=== PATIENT | female | born 1980 | race Caucasian/White ===

== ENCOUNTER 2024-08-08 08:37 | Inpatient (IN) ==
--- NOTE | 2024-08-08 08:53 | Emergency Department Note ---
Impression & Plan Diverticulitis of intestine with abscess, Abdominal pain, Leukocytosis, Nausea & vomiting ED Provider Note NAME: NIKI ARCHAEOLOGIST AGE: 44 SEX: F : 1980 ARRIVES VIA: Walk-In INFORMANT: Patient ED PROVIDER(S): Neftaly Ashby MD CHIEF COMPLAINT: PLAN: Disposition: Admit MEDICAL DECISION MAKING: The patient is a pleasant 44-year-old woman presents to the emergency department for ongoing lower mid abdominal pain with associated nausea and vomiting and feverishness which she reports began last week when she was treated for presumed urinary tract infection following telehealth visit/evaluation. She reports she was prescribed Macrobid and did feel she had improved subsequently but then symptoms returned on Tuesday and continued through the weekend and while she felt better on Tuesday symptoms gradually returned yesterday with fever and vomiting. Patient denies any prior abdominal surgeries. She reports minimal pain at this time. On evaluation the patient is no acute distress, afebrile with heart in the 100s and blood pressure 150s/110s and vital signs otherwise stable. She appears clinically dry. She has mild mid lower abdominal discomfort without discrete tenderness. There is no guarding or rebound. Patient was provided with IV fluid hydration, IV APAP, famotidine and Zofran. WBC 17.5 K with neutrophil predominance but no left shift. H/H and platelets within normal limits. Chemistry without metabolic acidosis. Total bilirubin 1.2 with direct Nile 0.6, nonspecific with normal AST and mildly elevated ALT. Lipase is not elevated. hCG was negative. UA is not suggestive of infection. Respiratory BioFire was negative. CT of the abdomen and pelvis was performed and demonstrates a 7.5cm x 7.4cm gas and fluid-filled collection in the peritoneum with extension to multiple loops of small bowel. Findings are compatible with diverticulitis with abscess which may involve multiple loops of small bowel. Reactive mesenteric and retroperitoneal lymph nodes are seen. No evidence of perforation. Case reviewed Nader Galan PAC, interventional radiology and Isis Becerra PAC with Dr. Ventura general surgery. Appreciate consultation recommendations. Recommend admission to medicine service at this time for IV antibiotics. Abscess possibly amenable to IR drainage though there is question of possible small bowel defect which they recommend to further characterize with repeat CT with oral contrast. Plan will be for IR drainage tomorrow if amenable or surgical intervention otherwise. Blood culture was obtained and IV antibiotics initiated with Zosyn. Findings were reviewed with the patient and she does agree with plan. Case was discussed with Dr. Marie, [facility] hospitalist, who will evaluate the patient for admission. Triage Nursing notes reviewed and agree them. Prior/external medical records reviewed Vital Signs: reviewed Differential diagnosis: Appendicitis, ovarian cyst, ovarian torsion, ectopic , TOA, PID, infections, diverticulitis, UTI, obstruction, mesenteric ischemia, aortic pathology, inflammatory bowel disease, renal colic, PUD, pancreatitis, biliary pathology, hernia, volvulus, constipation, as well as other pathologies. ER treatment provided: See below. Diagnostics interpreted by me: ECG: Normal sinus rhythm, 86 bpm, no ectopy, no overt ST elevation or depression, QTc 435, QRS 94. Cardiac Monitoring: An order for continuous cardiac monitoring was placed and demonstrated Normal sinus rhythm, 86 bpm, no ectopy. Laboratory studies: See below Imaging studies: See below Consultation(s): Nader Galan PAC, interventional radiology Isis Becerra PAC with Dr. Ventura general surgery. Dr. Marie [facility] hospitalist. HPI: The patient is a pleasant 44-year-old woman presents to the emergency department for ongoing lower mid abdominal pain with associated nausea and vomiting and feverishness which she reports began last week when she was treated for presumed urinary tract infection following telehealth visit/evaluation. She reports she was prescribed Macrobid and did feel she had improved subsequently but then symptoms returned on Tuesday and continued through the weekend and while she felt better on Tuesday symptoms gradually returned yesterday with fever and vomiting. Patient denies any prior abdominal surgeries. ROS: See above HPI for pertinent positives & negatives. A total of 10 systems reviewed and were otherwise negative. VITALS:See Below PHYSICAL EXAMINATION: GENERAL: Awake, alert, fatigued-appearing, in no distress, BMI 34.7. HENT: Normocephalic, atraumatic. Oropharynx with dry mucous membranes and otherwise unremarkable. EYES: Normal conjunctiva. Sclera non-icteric. NECK: Supple. No nuchal rigidity. FROM. No JVD. RESPIRATORY: Clear to auscultation. CARDIAC: Tachycardic rate, normal rhythm. Extremities warm and well perfused. Pulses equal. ABDOMEN: Soft, non-distended. Mild mid lower abdominal discomfort without discrete tenderness to palpation. No rebound or guarding. No masses. MUSCULOSKELETAL: Chest examination reveals no tenderness. The back is symmetrical on inspection without obvious abnormality. There is no CVA tenderness to palpation. No joint edema. LOWER EXTREMITIES: Calves are equal size bilaterally and non-tender. No edema. No discoloration. NEURO: Normal sensorium. No sensory or motor deficits noted. SKIN: No rash or jaundice noted. Neftaly Ashby MD Past Med/Surg History Problem List (Updated 08/08/24 @ 22:05 by Neftaly Ashby MD) Nausea & vomiting (Acute) Leukocytosis (Acute) Abdominal pain (Acute) Diverticulitis of intestine with abscess (Acute) Social History Smoking Status: Never smoker Hx Alcohol Use: Yes Alcohol type: beer, wine and hard liquor Hx Substance Use: No Preferred Language: Mongolian Communication Ability: Effective Cylinder Filler Required: No Beliefs That Will Affect Care: None Current Living Situation: Spouse and Family Feels Safe at Home: Yes Assistive Devices: Glasses Allergies Allergies Allergy/AdvReac Type Severity Reaction Status Date / Time nickel Allergy Mild contact Unverified 08/08/24 11:48 rash Home Meds Home Medications Medication Instructions Recorded Confirmed Fish Oil 1 cap PO DAILY 08/08/24 08/08/24 Ibuprofen Tab (MOTRIN) 600 mg PO Q4H PRN Pain 08/08/24 08/08/24 Vitamin D3 1 tab PO DAILY 08/08/24 08/08/24 magnesium glycinate 1 tab PO DAILY 08/08/24 08/08/24 Results & Data (ED) Vital Signs Vital Signs - 24 hr 08/08/24 08:42 08/08/24 09:14 08/08/24 10:45 Temperature 36.5 C Temperature Source Temporal Artery Scan Pulse Rate 105 H 104 H Pulse Rate [Apical] Pulse Rhythm [Apical] Pulse Strength [Apical] Respiratory Rate 16 19 Respiratory Effort / Characteristics Non-Labored Spontaneous Respiratory Depth Normal Respiratory Pattern Blood Pressure 158/110 H Blood Pressure [Left Arm] 171/111 H Blood Pressure Mean 126 Blood Pressure Mean [Left Arm] 131 Blood Pressure Position [Left Arm] Pulse Oximetry 97 97 95 Oxygen Delivery Method Room Air Room Air Room Air Sepsis Recent Fever Within 48 Hours Yes Sepsis New/Unexplained Change in Mental Status No Sepsis Action Taken by Nursing No Action Required 08/08/24 14:00 Temperature Temperature Source Pulse Rate Pulse Rate [Apical] 85 Pulse Rhythm [Apical] Regular Pulse Strength [Apical] Normal Respiratory Rate 19 Respiratory Effort / Characteristics Spontaneous Respiratory Depth Normal Respiratory Pattern Regular Blood Pressure Blood Pressure [Left Arm] 181/101 H Blood Pressure Mean Blood Pressure Mean [Left Arm] 127 Blood Pressure Position [Left Arm] Lying Pulse Oximetry 99 Oxygen Delivery Method Room Air Sepsis Recent Fever Within 48 Hours Sepsis New/Unexplained Change in Mental Status Sepsis Action Taken by Nursing Laboratory Data 08/08/24 09:23 08/08/24 09:23 Lab Results 08/08/24 08/08/24 Range/Units 09: 10:19 WBC 17.55 H (4.8-10.8) K/ul RBC 4.80 (4.20-5.40) M/uL Hgb 13.7 (12.0-16.0) g/dl Hct 41.5 (37.0-47.0) % MCV 86.5 (80.0-100.0) fL MCH 28.5 (25.0-34.0) pg MCHC 33.0 (32.0-36.0) g/dL RDW Std Deviation 39.8 (36.4-46.3) fL RDW Coeff of [place] 12.5 (11.5-14.5) % Plt Count 334 (130-400) K/uL MPV 10.1 (9.4-12.4) fL Immature Gran % (Auto) 0.9 % Neut % (Auto) 83.3 % Lymph % (Auto) 6.8 % [place] % (Auto) 8.3 % Eos % (Auto) 0.4 % Baso % (Auto) 0.3 % Neut # (Auto) 14.61 H (1.40-6.50) K/uL Lymph # (Auto) 1.19 L (1.20-3.40) K/uL [place] # (Auto) 1.46 H (0.11-0.59) K/uL Eos # (Auto) 0.07 (0.00-0.50) K/uL Baso # (Auto) 0.06 (0.00-0.20) K/uL Immature Gran # (Auto) 0.16 (0.01-0.20) K/uL Sodium 138 (136-145) mmol/L Potassium 4.1 (3.5-5.1) mmol/L Chloride 99 (98-107) mmol/L Carbon Dioxide 30 (21-32) mmol/L Anion Gap 9 (3-11) BUN 9 (6-23) mg/dl Creatinine 0.61 (0.6-1.2) mg/dl Est Cr Clr Drug Dosing 166.2 ml/min eGFR 114.40 BUN/Creatinine Ratio 14.8 (10-20) Glucose 107 H (70-99(Fasting)) mg/dl Calcium 9.8 (8.6-10.3) mg/dl Total Bilirubin 1.2 H (0.2-1.0) mg/dl Direct Bilirubin TNP 0.6 H AST 37 (13-39) U/L ALT 100 H (7-52) U/L Alkaline Phosphatase 151 H (34-104) U/L Total Protein 8.0 (6.0-8.3) gm/dl Albumin 3.8 (3.4-5.0) gm/dl Globulin 4.2 H (2.5-4.0) gm/dl Albumin/Globulin Ratio 0.9 (0.9-2) Lipase 6 L (11-82) U/L HCG, Qual Negative (Negative) Urine Color Dark Yellow Urine Appearance Turbid A (Clear) Urine pH 7.5 (4.5-7.5) Ur Specific [place] 1.018 (1.000-1.030) Urine Protein 1+ H (Negative) Urine Glucose (UA) Negative (Negative) Urine Ketones Trace H (Negative) Urine Blood Negative (Negative) Urine Nitrite Negative (Negative) Urine Bilirubin Negative (Negative) Urine Urobilinogen Negative (Negative) Ur Leukocyte Esterase Trace H (Negative) Urine WBC (Auto) 0-5 (0-5) /hpf Urine RBC (Auto) 3-5 H (0-2) /hpf U Hyaline Cast (Auto) 0-2 (0-2) /lpf U Epithel Cells (Auto) 3-5 H (0-2) /hpf Urine Bacteria (Auto) None Seen (None Seen) Adenovirus (PCR) Not Detected (NotDetected) B. pertussis DNA (PCR) Not Detected (NotDetected) B.parapertussis DNA PCR Not Detected (NotDetected) C. pneumoniae DNA (PCR) Not Detected (NotDetected) Coronavirus OC43 (PCR) Not Detected (NotDetected) Coronavirus HKU1 (PCR) Not Detected (NotDetected) Coronavirus 229E (PCR) Not Detected (NotDetected) SARS-CoV-2 (PCR) Not Detected (NotDetected) Coronavirus NL63 (PCR) Not Detected (NotDetected) Human Metapneumovir PCR Not Detected (NotDetected) Influenza Type A (PCR) Not Detected (NotDetected) Influenza Type B (PCR) Not Detected (NotDetected) M. pneumoniae (PCR) Not Detected (NotDetected) Parainfluenza 1 (PCR) Not Detected (NotDetected) Parainfluenza 2 (PCR) Not Detected (NotDetected) Parainfluenza 3 (PCR) Not Detected (NotDetected) Parainfluenza 4 (PCR) Not Detected (NotDetected) RSV (PCR) Not Detected (NotDetected) Entero/Rhino (PCR) Not Detected (NotDetected) Administered Medications Lactated Ringer's (Lr) 1,000 mls @ 80 mls/hr IV .[id number] RASHID Stop: 08/09/24 02:44 Last Infusion: 08/08/24 20:29 Dose: 0 mls/hr Documented By: Admin: 08/08/24 17:13 Dose: 80 mls/hr Documented By: DEANNA Piperacillin Sod/Tazobactam Sod (Zosyn) 4.5 gm in 100 mls @ 25 mls/hr IV Q8H [facility]; Protocol Stop: 08/18/24 17:59 Last Admin: 08/08/24 20:04 Dose: 25 mls/hr Documented By: GABRIEL Acetaminophen (Ofirmev) 1,000 mg in 100 mls @ 400 mls/hr IV Q8H PRN PRN Reason: Fever/Mild Pain (Pain 1,2,3) Stop: 08/11/24 17:07 Last Infusion: 08/08/24 18:49 Dose: Infused Documented By: Admin: 08/08/24 18:28 Dose: 400 mls/hr Documented By: DEANNA Ondansetron HCl (Ondansetron Inj 2 Mg/Ml 2 Ml Vial) 4 mg IV Q4H PRN PRN Reason: Nausea Stop: 09/07/24 14:49 Last Admin: 08/08/24 14:53 Dose: 4 mg Documented By: SRL Discontinued Medications Acetaminophen (Ofirmev) 1,000 mg in 100 mls @ 400 mls/hr IV NOW STA Stop: 08/08/24 09:05 Last Infusion: 08/08/24 10:46 Dose: Infused Documented By: Admin: 08/08/24 09:16 Dose: 400 mls/hr Documented By: ML Famotidine (Pepcid 20mg Iv Push) 20 mg in 5 mls @ 2.5 mls/min IV NOW STA Stop: 08/08/24 08:52 Last Admin: 08/08/24 09:15 Dose: 2.5 mls/min Documented By: ML Sodium Chloride (Nss) 500 mls @ 999 mls/hr IV .Q31M ONE Stop: 08/08/24 09:21 Last Infusion: 08/08/24 10:04 Dose: Infused Documented By: Admin: 08/08/24 09:16 Dose: 999 mls/hr Documented By: ML Piperacillin Sod/Tazobactam Sod (Zosyn) 4.5 gm in 100 mls @ 200 mls/hr IV NOW ONE; Protocol Stop: 08/08/24 13:43 Last Infusion: 08/08/24 15:38 Dose: Infused Documented By: Admin: 08/08/24 14:36 Dose: 200 mls/hr Documented By: SRL Lactated Ringer's (Lr) 500 mls @ 999 mls/hr IV .Q31M ONE Stop: 08/08/24 13:59 Last Admin: 08/08/24 17:10 Dose: Not Given Documented By: RLB Lactated Ringer's (Lr) 250 mls @ 999 mls/hr IV .Q16M ONE Stop: 08/08/24 14:24 Last Admin: 08/08/24 17:10 Dose: Not Given Documented By: RLB Lactated Ringer's (Lr) 1,000 mls @ 999 mls/hr IV .Q1H1M ONE Stop: 08/08/24 15:09 Last Infusion: 08/08/24 16:52 Dose: Infused Documented By: Admin: 08/08/24 15:20 Dose: 999 mls/hr Documented By: BENEDICT Ioversol (Optiray 320 100ml) 94 ml IV ONCE ONE Stop: 08/08/24 10:51 Last Admin: 08/08/24 10:50 Dose: 94 ml Documented By: YAMILEX Ondansetron HCl (Ondansetron Inj 2 Mg/Ml 2 Ml Vial) 4 mg IV NOW STA Stop: 08/08/24 08:52 Last Admin: 08/08/24 09:15 Dose: 4 mg Documented By: ALEJANDRINA Prochlorperazine (Prochlorperazine 5 Mg/Ml 2 Ml Vial) 5 mg IV ONCE ONE Stop: 08/08/24 15:49 Last Admin: 08/08/24 16:42 Dose: 5 mg Documented By: BENEDICT Imaging Data Radiologist's Impression: Abdomen/Pelvis CT 08/08/24 09:33 CT abd pelvis IV con only CLINICAL HISTORY: abd pain, fever TECHNIQUE: Helical axial images of the abdomen and pelvis were obtained and displayed. Automated dose lowering techniques and/or adjustment according to patient size were utilized for this exam. This exam was performed with intravenous contrast. CT DOSE: 1607.57 mGy.cm COMPARISON: None available at the time of this dictation. FINDINGS: Lower chest: No acute abnormality. Liver: Unremarkable. No focal lesions are seen. Gallbladder and biliary tree: Cholelithiasis is seen without evidence of cholecystitis. No intra- or extrahepatic biliary ductal dilation. Pancreas: Unremarkable, no focal lesions. Spleen: Unremarkable. Adrenals: Unremarkable. Kidneys and ureters: Unremarkable. Bladder: Unremarkable. Reproductive organs: Unremarkable. Bowel: Numerous diverticula are seen with wall thickening and surrounding fat stranding in the sigmoid colon. Lymph nodes Retroperitoneal: Subcentimeter lymph nodes are noted. Pelvic: Unremarkable. Mesenteric: Subcentimeter lymph nodes are noted. Peritoneum: A 75 x 74 mm gas and fluid collection is noted in the peritoneum with extension to multiple loops of small bowel. Vessels: Unremarkable. Abdominal wall: Unremarkable. Bones: Unremarkable. IMPRESSION: Findings are compatible with diverticulitis with an abscess in the abdomen. This abscess may involve multiple loops of small bowel. Reactive mesenteric and retroperitoneal lymph nodes are noted. No pneumoperitoneum is seen to suggest obtained perforation. ACT 112: Negative or not required by law. Electronically signed by: Indra Parisi M.D. 08/08/2024 11:27 AM Discharge Plan Visit Data Chief Complaint: Abdominal Pain Stated Complaint: UTI HX, FATIGUE, VOMITING, ABD PAIN ED Provider: Neftaly Ashby Discharge Problem: Diverticulitis of intestine with abscess, Abdominal pain, Leukocytosis, Nausea & vomiting Patient Disposition: Admitted As Inpatient Discharge Instructions Interventions: ED Discharge Assessment Last Done: 08/08/24 16:33 Discharge Problem: Diverticulitis of intestine with abscess Qualifiers: Diverticulitis site: large intestine Diverticulitis bleeding: without bleeding Qualified Code(s): K57.20 - Diverticulitis of large intestine with perforation and abscess without bleeding Abdominal pain Qualifiers: Abdominal location: unspecified location Qualified Code(s): R10.9 - Unspecified abdominal pain Leukocytosis Qualifiers: Leukocytosis type: unspecified Qualified Code(s): D72.829 - Elevated white blood cell count, unspecified Nausea & vomiting Qualifiers: Vomiting type: unspecified Qualified Code(s): R11.2 - Nausea with vomiting, unspecified
[2024-08-08] MEDS: FAMOTIDINE 20MG IV PUSH 20 MG/5 ML SYR IV STA (09:15)
[2024-08-08] MEDS: ONDANSETRON INJ 2 MG/ML 2 ML VIAL IV STA (09:15)
[2024-08-08] MEDS: ACETAMINOPHEN 1,000 MG/100 ML VIAL IV STA (09:16)
[2024-08-08] MEDS: SODIUM CHLORIDE 0.9% 500 ML IV ONE (09:16)
[2024-08-08 09:41] LABS: Basophils # (auto) 0.06 K/uL (0.00-0.20); Basophils % (auto) 0.3 %; Eosinophils # (auto) 0.07 K/uL (0.00-0.50); Eosinophils % (auto) 0.4 %; Hematocrit (blood only) 41.5 % (37.0-47.0); Hemoglobin 13.7 g/dl (12.0-16.0); Immature Granulocytes # (auto) 0.16 K/uL (0.01-0.20); Immature Granulocytes % (auto) 0.9 %; Lymphocytes # (auto) 1.19 K/uL (1.20-3.40); Lymphocytes % (auto) 6.8 %; Mean Corpuscular Hemoglobin 28.5 pg (25.0-34.0); Mean Corpuscular Volume 86.5 fL (80.0-100.0); Mean Platelet Volume 10.1 fL (9.4-12.4); Monocytes # (auto) 1.46 K/uL (0.11-0.59); Monocytes % (auto) 8.3 %; Neutrophils # (auto) 14.61 K/uL (1.40-6.50); Neutrophils % (auto) 83.3 %; Platelet Count 334 K/uL (130-400); RDW Coefficient of Variation 12.5 % (11.5-14.5); RDW Standard Deviation 39.8 fL (36.4-46.3); White Blood Count 17.55 K/ul (4.8-10.8)
[2024-08-08 09:47] LABS: Appearance Urine Turbid (Clear); Bacteria Urine Automated None Seen (None Seen); Bilirubin Urine Negative (Negative); Blood Urine Negative (Negative); Cast Urine Automated 0-2 /lpf (0-2); Color Urine Dark Yellow; Glucose Urine UA Negative (Negative); Ketones Urine Trace (Negative); Leukocyte Esterase Urine Trace (Negative); Nitrite Urine Negative (Negative); Protein Urine 1+ (Negative); Specific Gravity Urine 1.018 (1.000-1.030); Urobilinogen Urine Negative (Negative); WBC Urine Automated 0-5 /hpf (0-5); pH Urine 7.5 (4.5-7.5)
[2024-08-08 09:54] LABS: Pregnancy Test, Serum Negative (Negative)
[2024-08-08 10:14] LABS: Alanine Aminotransferase 100 U/L (7-52); Albumin Globulin Ratio 0.9 (0.9-2); Albumin Level 3.8 gm/dl (3.4-5.0); Alkaline Phosphatase 151 U/L (34-104); Anion Gap 9 (3-11); Aspartate Aminotransferase 37 U/L (13-39); BUN Creatinine Ratio 14.8 (10-20); Bilirubin,Total 1.2 mg/dl (0.2-1.0); Blood Urea Nitrogen 9 mg/dl (6-23); Calcium 9.8 mg/dl (8.6-10.3); Carbon Dioxide 30 mmol/L (21-32); Chloride 99 mmol/L (98-107); Creatinine Clr Calc Pharmacy 166.2 ml/min; Globulin 4.2 gm/dl (2.5-4.0); Glucose 107 mg/dl (70-99(Fasting)); Lipase 6 U/L (11-82); Potassium 4.1 mmol/L (3.5-5.1); Sodium 138 mmol/L (136-145)
[2024-08-08 10:36] LABS: Adenovirus PCR Not Detected (NotDetected); Bordetella parapertussis PCR Not Detected (NotDetected); Bordetella pertussis PCR Not Detected (NotDetected); Chlamydia pneumoniae PCR Not Detected (NotDetected); Coronavirus 229E PCR Not Detected (NotDetected); Coronavirus CoV-2 (COVID19)PCR Not Detected (NotDetected); Coronavirus HKU1 PCR Not Detected (NotDetected); Coronavirus NL63 PCR Not Detected (NotDetected); Coronavirus OC43PCR Not Detected (NotDetected); Human Metapneumovirus PCR Not Detected (NotDetected); Influenza A PCR Not Detected (NotDetected); Influenza B PCR Not Detected (NotDetected); Mycoplasma pneumoniae PCR Not Detected (NotDetected); Parainfluenza Virus 1 PCR Not Detected (NotDetected); Parainfluenza Virus 2 PCR Not Detected (NotDetected); Parainfluenza Virus 3 PCR Not Detected (NotDetected); Parainfluenza Virus 4 PCR Not Detected (NotDetected); Respiratory Syncytial VirusPCR Not Detected (NotDetected); Rhinovirus/Enterovirus PCR Not Detected (NotDetected)
[2024-08-08] MEDS: OPTIRAY 320 100ml IV ONE (10:50)
--- NOTE | 2024-08-08 11:29 | CT Scan Report ---
CT abd pelvis IV con only CLINICAL HISTORY: abd pain, fever TECHNIQUE: Helical axial images of the abdomen and pelvis were obtained and displayed. Automated dose lowering techniques and/or adjustment according to patient size were utilized for this exam. This e xam was performed with intravenous contrast. CT DOSE: 1607.57 mGy.cm COMPARISON: None available at the time of this dictation. FINDINGS: Lower chest: No acute abnormality. Liver: Unremarkable. No focal lesions are seen. Gallbladder and biliary tree: Cholelithiasis is seen without evidence of cholecystitis. No intra- or extrahepatic biliary ductal dilation. Pancreas: Unremarkable, no focal lesions. Spleen: Unremarkable. Adrenals: Unremarkable. Kidneys and ureters: Unremarkable. Bladder: Unremarkable. Reproductive organs: Unremarkable. Bowel: Numerous diverticula are seen with wall thickening and surrounding fat stranding in the sigmoi d colon. Lymph nodes Retroperitoneal: Subcentimeter lymph nodes are noted. Pelvic: Unremarkable. Mesenteric: Subcentimeter lymph nodes are noted. Peritoneum: A 75 x 74 mm gas and fluid collection is noted in the peritoneum with extension to multip le loops of small bowel. Vessels: Unremarkable. Abdominal wall: Unremarkable. Bones: Unremarkable. IMPRESSION: Findings are compatible with diverticulitis with an abscess in the abdomen. This abscess may involve multiple loops of small bowel. Reactive mesenteric and retroperitoneal lymph nodes are noted. No pneu moperitoneum is seen to suggest obtained perforation. ACT 112: Negative or not required by law. Electronically signed by: Indra Parisi M.D. 08/08/2024 11:27 AM
--- NOTE | 2024-08-08 14:09 | History & Physical Report ---
Date of Service August 08, 2024 Assessment & Plan (1) Diverticulitis of intestine with abscess: Plan: Diverticulitis with abscess CTA/P: Diverticulitis with abscess involving multiple loops of small bowel. Reactive mesenteric and retroperitoneal lymph adenopathy is noted. No pneumoperitoneum to suggest perforation Case was reviewed with both interventional radiology and general surgery. Patient will have a CT with oral contrast tomorrow morning to ensure adequate window for IR drainage. An adequate window is present or there is evidence of bowel defect then will proceed to surgery with Dr. Ventura. Zosyn given in the ER, continue every 8 hours Leukocytosis of 17.55 on admission Renal function is normal Patient is tachycardic at 104, with a leukocytosis of 17K, identified source of infection in the abdomen meets criteria for sepsis. On admission expand fluids to meet sepsis guideline recommendations for at least ideal body weight of = 2113cc --> +1113 cc of fluids, blood cultures pending, lactate added. Patient is seen during a period of critical shortage of IV fluid availability. Admit to PCU If worsening abdominal pain/rigidity/rebound, obtain stat KUB to evaluate for free air Plan DVT prophylaxis: Pharmacal prophylaxis held pending surgical intervention. SCDs CODE STATUS: Full code Disposition: PCU Diet: N.p.o., IVFM LR History of Present Illness Primary Care Provider: [facility] Yumiko is a 44-year-old female with no past medical history who takes vitamins and ibuprofen as needed as her only medications who presented to the ER with abdominal pain and he was found to have diverticulitis with abscess involving multiple loops of small bowel. Reactive mesenteric and retroperitoneal lymph adenopathy is noted. No pneumoperitoneum to suggest perforation Abdominal pain and dysuria x7 days Fever of ~100.8. Thought it was a UTI Got a telehealth appt --> placed on macrobid which FElt better up until Tuesday, went to lunch and had a salad and then had 'crazy wave of abdominal pain second in my life only to labor pains' 9/ pain. Got son from day care, layed on the cough and vomited --> felt better but pain lingered at 5/10 Tuesday still felt poorly. Attributed nausea to the antibiotic. Currently feels pain is improved at rest after pain medicine, but does continue to be tender in her left lower quadrant. Nausea has improved with Zofran Does not have chills currently, but does endorse that she has had fevers intermittently in the last week. Dysuria has resolved Denies chest pain, chest pressure, shortness of breath, difficulty breathing, leg swelling No other medical problems, no known medication allergies Medical History: Reviewed Medications: Reviewed Surgical History: Reviewed Family history: Reviewed Allergies: Reviewed. NKDA Social History: ETOH 1-2x per week. No tobacco. Code Status: Full Code PhD studying science education Allergies Allergy/AdvReac Type Severity Reaction Status Date / Time nickel Allergy Mild contact Unverified 08/08/24 11:48 rash Home Medications Medication Instructions Recorded Confirmed Type Fish Oil 1 cap PO DAILY 08/08/24 08/08/24 History Ibuprofen Tab (MOTRIN) 600 mg PO Q4H PRN Pain 08/08/24 08/08/24 History Vitamin D3 1 tab PO DAILY 08/08/24 08/08/24 History magnesium glycinate 1 tab PO DAILY 08/08/24 08/08/24 History Past Med/Surg History Problem List (Updated 08/08/24 @ 14:43 by Marko Marie MD) Diverticulitis of intestine with abscess Social History Smoking Status: Never smoker Feels Safe at Home: Yes Physical Exam Physical Exam: General: A&Ox3. NAD. Cooperative. Anxious affect HEENT: Atraumatic, normocephalic. Vision and hearing grossly intact Pulm: CTAB A&P. -wheezes, -rales, -rhonchi. Symmetrical chest rise. No increased work of breathing. No respiratory distress. Cardiac: RRR, -mrg. Radial pulses intact and symmetrical. Abdominal: Tender to palpation at the epigastrium tender to palpation at the left lower quadrant and periumbilical's. No rebound tenderness or involuntary guarding. Results & Data Results & Data Vital Signs (Past 12 Hours) Vital Signs Temp Pulse Resp BP BP Pulse Ox O2 Del Method 08/08/24 10:45 19 171/111 H 95 Room Air 08/08/24 09:14 104 H 97 Room Air 08/08/24 08:42 36.5 C 105 H 16 158/110 H 97 Room Air PG Care Time/CCT Total # of Minutes Spent Total Time Spent with Patient: Total time spent is greater than 50% in coordination of care (as documented) at patient's floor/unit and/or counseling patient: Coding Level of Care Code 28180 INT INP/OBS CARE MIN Diagnoses Diverticulitis of intestine with abscess K57.80
[2024-08-08] MEDS: PIPERACILLIN/TAZOBACTAM 4.5 GM/100 ML BAG IV ONE (14:36)
[2024-08-08] MEDS: ONDANSETRON INJ 2 MG/ML 2 ML VIAL IV PRN (14:53)
--- NOTE | 2024-08-08 15:17 | Surgery Consultation ---
Date of Consultation August 08, 2024 Assessment & Plan (1) Diverticulitis of intestine with abscess: Patient with c/o abdominal pain, n/v fever, underwent an abd/pelvis CT scan and was found to have diverticulitis with abscess involving multiple loops of small bowel. Reactive mesenteric and retroperitoneal lymph adenopathy is noted. No pneumoperitoneum to suggest perforation. On exam she denies abd pain, SOB, CP. Mild tachycardia at 97, with HTN. Abdomen is Soft non distended, TTP more LLQ. WBC 17. Discussed with IR , will attempt to do oral contrast study and percutaneous drainage/drain placement tomorrow. admit to medicine, Keep NPO, IV antibiotics, IV Fluids for hydration, PRN IV antiemetic and analgesic. No acute surgical intervention indicated at this time, although did discuss with patient pending oral contrast study pt may need surgery and could end up with a colostomy. Will follow , call if patients condition should worsen. Discussed case with on-call surgeon Dr. Ventura as above. pt stable. CT reviewed. plan is to eval with oral contrast...if no communication with small bowel IR will attempt to drain. if +leakage of contrast will need to discuss surgical vs more conservative management. History of Present Illness Reason for Consultation: diverticulitis w/ 7cm abscess Requesting Physician: Dr. Marie History of Present Illness Patient is 44yo female with no [facility] that presented to the ER with abdominal pain. Reports that she was seen last week via telehealth for a UTI and given a course of Macrobid. On last Tuesday she reports at lunch she started having severe abdominal pain with nausea and vomiting. She continued throughout the weekend feeling sick, and had a bout of emesis and nausea this AM with fever prior to arrival. She thought she was getting a worse UTI and was encouraged to come to ER by friends. While in the ER she underwent an abd/pelvis CT scan and was found to have diverticulitis with abscess involving multiple loops of small bowel. Reactive mesenteric and retroperitoneal lymph adenopathy is noted. No pneumoperitoneum to suggest perforation. General surgery was consulted. She denies prior abd surgery, blood thinners, and states that UTI symptoms have resolved. Allergies Allergy/AdvReac Type Severity Reaction Status Date / Time nickel Allergy Mild contact Unverified 08/08/24 11:48 rash Home Medications Medication Instructions Recorded Confirmed Type Fish Oil 1 cap PO DAILY 08/08/24 08/08/24 History Ibuprofen Tab (MOTRIN) 600 mg PO Q4H PRN Pain 08/08/24 08/08/24 History Vitamin D3 1 tab PO DAILY 08/08/24 08/08/24 History magnesium glycinate 1 tab PO DAILY 08/08/24 08/08/24 History Patient History Social History Smoking Status: Never smoker Feels Safe at Home: Yes Review of Systems Constitutional: + fever and + chills Respiratory: no dyspnea Cardiovascular: no chest pain Gastrointestinal: + nausea and + vomiting; no abdominal pa in (at rest ) Genitourinary: no dysuria Musculoskeletal: no muscle weakness Physical Exam Constitutional: cooperative and comfortable; no acute distress Respiratory: normal respiratory effort and able to speak in complete sentences; no respiratory distress Cardiovascular: Rate/Rhythm: + tachycardic (97) Gastrointestinal (Abdomen): Inspection/Auscultation: abdomen not distended Percussion/Palpation: + abdomen tender (LLQ) and abdomen soft Musculoskeletal: no cyanosis or clubbing, extremities motor strength 5/5 Results & Data Vital Signs (Past 12 Hours) Vital Signs Temp Pulse Resp BP BP Pulse Ox O2 Del Method 08/08/24 14:43 97 H 08/08/24 10:45 19 171/111 H 95 Room Air 08/08/24 09:14 104 H 97 Room Air 08/08/24 08:42 97.7 F 105 H 16 158/110 H 97 Room Air [phone] Scan Report Patient: NIKI CARPIO Admit Date: 08/08/24 MR#: [id number] Address1: [address] [place] [address] Acct ID:[id number] Address2: Date: 1980 [facility] Zip: [place] [address] Age: 44 Location: ED Sex: F Room/Bed: Att Phy: Diagnosis: UTI HX, FATIGUE, VOMITING, ABD PAIN Chanel Phy: [facility] Services Service Date: 08/08/24 Fam Phy: Interpreting Phy: Indra Parisi MDAdmit Phy: Ordering Phy: Neftaly Ashby M.D. cc: ~ CT abd pelvis IV con only CLINICAL HISTORY: abd pain, fever TECHNIQUE: Helical axial images of the abdomen and pelvis were obtained and displayed. Automated dose lowering techniques and/or adjustment according to patient size were utilized for this exam. This exam was performed with intravenous contrast. CT DOSE: 1607.57 mGy.cm COMPARISON: None available at the time of this dictation. FINDINGS: Lower chest: No acute abnormality. Liver: Unremarkable. No focal lesions are seen. Gallbladder and biliary tree: Cholelithiasis is seen without evidence of cholecystitis. No intra- or extrahepatic biliary ductal dilation. Pancreas: Unremarkable, no focal lesions. Spleen: Unremarkable. Adrenals: Unremarkable. Kidneys and ureters: Unremarkable. Bladder: Unremarkable. Reproductive organs: Unremarkable. Bowel: Numerous diverticula are seen with wall thickening and surrounding fat stranding in the sigmoid colon. Lymph nodes Retroperitoneal: Subcentimeter lymph nodes are noted. Pelvic: Unremarkable. Mesenteric: Subcentimeter lymph nodes are noted. Peritoneum: A 75 x 74 mm gas and fluid collection is noted in the peritoneum with extension to multiple loops of small bowel. Vessels: Unremarkable. Abdominal wall: Unremarkable. Bones: Unremarkable. IMPRESSION: Findings are compatible with diverticulitis with an abscess in the abdomen. This abscess may involve multiple loops of small bowel. Reactive mesenteric and retroperitoneal lymph nodes are noted. No pneumoperitoneum is seen to suggest obtained perforation. ACT 112: Negative or not required by law. Electronically signed by: Indra Parisi M.D. 08/08/2024 11:27 AM Dictated: 08/08/24 1112 Transcribed: 08/08/24 111 Results CBC w Diff Results: RBC 4.80 M/uL (4.20-5.40) 08/08/24 WBC 17.55 K/ul (4.8-10.8) H 08/08/24 Hgb 13.7 g/dl (12.0-16.0) 08/08/24 Hct 41.5 % (37.0-47.0) 08/08/24 MCV 86.5 fL (80.0-100.0) 08/08/24 MCH 28.5 pg (25.0-34.0) 08/08/24 MCHC 33.0 g/dL (32.0-36.0) 08/08/24 RDW Standard Deviation 39.8 fL (36.4-46.3) 08/08/24 RDW Coefficient of Variation 12.5 % (11.5-14.5) 08/08/24 Plt Count 334 K/uL (130-400) 08/08/24 MPV 10.1 fL (9.4-12.4) 08/08/24 Neutrophils (%) (Auto) 83.3 % 08/08/24 Lymphocytes (%) (Auto) 6.8 % 08/08/24 Monocytes # (Auto) 1.46 K/uL (0.11-0.59) H 08/08/24 Eosinophils # (Auto) 0.07 K/uL (0.00-0.50) 08/08/24 Immature Granulocyte % (Auto) 0.9 % 08/08/24 Neutrophils # (Auto) 14.61 K/uL (1.40-6.50) H 08/08/24 Lymphocytes # (Auto) 1.19 K/uL (1.20-3.40) L 08/08/24 Monocytes # (Auto) 1.46 K/uL (0.11-0.59) H 08/08/24 Eosinophils # (Auto) 0.07 K/uL (0.00-0.50) 08/08/24 Basophils # (Auto) 0.06 K/uL (0.00-0.20) 08/08/24 Immature Granulocyte # (Auto) 0.16 K/uL (0.01-0.20) 4 PG Care Time/CCT Total # of Minutes Spent Total Time Spent with Patient: Total time spent is greater than 50% in coordination of care (as documented) at patient's floor/unit and/or counseling patient: Coding Level of Care Code 42628 IN/OBS CONSULT LVL 4,60M Diagnoses Diverticulitis of intestine with abscess K57.80
[2024-08-08] MEDS: LACTATED RINGER'S 1,000 ML IV ONE (15:20)
[2024-08-08] MEDS: PROCHLORPERAZINE 5 MG/ML 2 ML VIAL IV ONE (16:42)
[2024-08-08] MEDS ORDERED: MoRPHine SULFATE 2 MG/ML CARP IV PRN (17:08)
[2024-08-08] MEDS ORDERED: MoRPHine SULFATE 4 MG/ML 1 ML CARP\\VIAL IV PRN (17:08)
[2024-08-08] MEDS: LACTATED RINGER'S 250 ML IV ONE (17:10)
[2024-08-08] MEDS: LACTATED RINGER'S 500 ML IV ONE (17:10)
[2024-08-08] MEDS: LACTATED RINGER'S 1,000 ML IV SCH (17:13)
[2024-08-08] MEDS: ACETAMINOPHEN 1,000 MG/100 ML VIAL IV PRN (18:28)
[2024-08-08] MEDS: PIPERACILLIN/TAZOBACTAM 4.5 GM/100 ML BAG IV SCH (20:04)
[2024-08-09 06:18] LABS: Hematocrit (blood only) 35.3 % (37.0-47.0); Hemoglobin 12.3 g/dl (12.0-16.0); Mean Corpuscular Hemoglobin 29.6 pg (25.0-34.0); Mean Corpuscular Hgb Conc 34.8 g/dL (32.0-36.0); Mean Corpuscular Volume 84.9 fL (80.0-100.0); Platelet Count 307 K/uL (130-400); RDW Coefficient of Variation 12.5 % (11.5-14.5); RDW Standard Deviation 38.7 fL (36.4-46.3); Red Blood Count 4.16 M/uL (4.20-5.40); White Blood Count 13.78 K/ul (4.8-10.8)
[2024-08-09 06:37] LABS: BUN Creatinine Ratio 17.5 (10-20); Calcium 8.4 mg/dl (8.6-10.3); Creatinine Clr Calc Pharmacy 161.8 ml/min; Potassium 3.9 mmol/L (3.5-5.1)
[2024-08-09 07:29] LABS: Basophils # (auto) 0.05 K/uL (0.00-0.20); Basophils % (auto) 0.4 %; Eosinophils # (auto) 0.09 K/uL (0.00-0.50); Eosinophils % (auto) 0.7 %; Immature Granulocytes % (auto) 1.5 %; Lymphocytes # (auto) 1.43 K/uL (1.20-3.40); Lymphocytes % (auto) 10.4 %; Monocytes # (auto) 1.15 K/uL (0.11-0.59); Monocytes % (auto) 8.3 %; Neutrophils # (auto) 10.86 K/uL (1.40-6.50); Neutrophils % (auto) 78.7 %
--- NOTE | 2024-08-09 08:05 | Surgery Progress Note ---
Date of Service August 09, 2024 Assessment & Plan (1) Diverticulitis of intestine with abscess: Plan: Patient here with diverticulitis with abscess formation of 7x7cm WBC improved to 13 (17). Vitals stable Abdomen soft, some discomfort to palpation in the LLQ Planning on performing repeat CT with oral contrast today and attempts at IR drainage of fluid collection Will f/u s/p IR procedure Continue NPO/IVF and IV abx for today. ice chips okay as above. feeling much better. minimal discomfort. awaiting repeat ct scan with oral contrast/possible IR drainage Admission and Anticipated Discharge Date Admission Date: August 08, 2024 Subjective Patient feeling remarkably well. Mild nausea controlled with zofran. Intermittent abdominal pain, but much better than what she was feeling. + gas, no BM. No urinary complaints. Physical Exam Physical Exam: awake/alert. no distress Respiratory: normal respiratory effort Gastrointestinal (Abdomen): Inspection/Auscultation: abdomen not distended Percussion/Palpation: + abdomen tender (some LLQ discomfort to palpation) and abdomen soft Results & Data Vital Signs (Past 12 Hours) Vital Signs Temp Pulse Pulse Resp BP Pulse Ox O2 Del Method 08/09/24 03:52 83 08/09/24 03:26 98.6 F 83 20 155/101 H 95 Room Air 08/09/24 00:38 99.5 F 98 H 20 164/106 H 95 Room Air 08/08/24 20:30 98.2 F 83 18 163/95 H 94 Room Air PG Care Time/CCT Total # of Minutes Spent Total Time Spent with Patient: Total time spent is greater than 50% in coordination of care (as documented) at patient's floor/unit and/or counseling patient: Coding Level of Care Code 90872 SUB INP/OBS CARE 11/24MIN Diagnoses Diverticulitis of intestine with abscess K57.20 Diverticulitis bleeding: without bleeding Diverticulitis site: large intestine (1) Diverticulitis of intestine with abscess Diverticulitis bleeding: without bleeding Diverticulitis site: large intestine Qualified Code(s): K57.20 - Diverticulitis of large intestine with perforation and abscess without bleeding
--- NOTE | 2024-08-09 11:15 | Electrocardiogram Report ---
Test Reason : Blood Pressure : */* mmHG Vent. Rate : 86 BPM Atrial Rate : 86 BPM P-R Int : 170 ms QRS Dur : 94 ms QT Int : 364 ms P-R-T Axes : 38 42 35 degrees QTcB Int : 435 ms Normal sinus rhythm Normal ECG No previous ECGs available Confirmed by Jonathan Pitts ([id number]) on 08/09/2024 11:15:00 AM Referred By: REFERRED SELF Confirmed By: Jonathan Pitts
--- NOTE | 2024-08-09 13:51 | CT Scan Report ---
CT-guided pelvic abscess drain placement INDICATION: Pelvic abscess collection PROCEDURE: Procedure and risks were explained. Informed consent was obtained. A follow-up timeout was completed. The patient was placed supine on the CT exam table. The lower abdomen was prepped and justice ped in sterile fashion. 1% lidocaine was utilized for skin anesthesia. Utilizing CT guidance, an 18-gauge Chiba needle was advanced into the pelvic fluid collection. A 0.03 5 Amplatz wire was introduced through the Chiba needle and exchanged for an 8 [place]ian locking pigtail catheter. 10 mL of purulent fluid was aspirated and sent to lab for analysis. The pigtail catheter wa s sutured to the skin with 3-0 Ethilon and placed to suction bag drainage. The patient tolerated the procedure well. Post CT scanning demonstrated adequate catheter position with significant reduction i n the abscess collection. Vital signs will be monitored postprocedure. IMPRESSION: Pelvic abscess drain placement as above. Performed, dictated, and signed by Nader Galan PA-C; to be co-signed by Dr. Mac Solitario. Electronically signed by: Mac Solitario M.D. 08/09/2024 1:52 PM
[2024-08-09] MEDS: fentaNYL citrate PF 100 MCG/2 ML VIAL ONE (13:57)
--- NOTE | 2024-08-09 16:02 | Hospitalist Progress Note ---
Date of Service August 09, 2024 Assessment & Plan (1) Diverticulitis of intestine with abscess: Plan: Diverticulitis with abscess CTA/P: Diverticulitis with abscess involving multiple loops of small bowel. Reactive mesenteric and retroperitoneal lymph adenopathy is noted. No pneumoperitoneum to suggest perforation Case was reviewed with both interventional radiology and general surgery. Patient will have a CT with oral contrast tomorrow morning to ensure adequate window for IR drainage. An adequate window is present or there is evidence of bowel defect then will proceed to surgery with Dr. Ventura. Leukocytosis of 17.55 on admission, rapidly downtrending following antibiotics Renal function is normal Following overnight antibiotics Zosyn patient's abdominal pain has nearly completely resolved with rapidly downtrending leukocytosis. - s/p IR drainage of abscess with drain placed and significant reduction in abscess size. Fluid sent for culture and speciation/sensitivities. Will continue to monitor output overnight. Reviewed with surgery. Recommend patient maintain n.p.o. for at least another day prior to attempting to advance to clears, will add on additional D5 LR for maintenance fluids. Given critical shortage of IV fluids will transition to clears as soon as possible however at this time risk exceeds benefit of advancing to clears and will continue fluids overnight. Appreciate recommendation Plan DVT prophylaxis: PHarmacoppx held following IR procedure and pending surgical re-evaluation. May resume SQ DVT PPx tomorrow am if stable and no bleeding complications CODE STATUS: Full code Disposition: PCU Diet: N.p.o., IVFM LR Admission and Anticipated Discharge Date Admission Date: August 08, 2024 Subjective Believe seen at the bedside. She reports that she is had a dramatic improvement of her pain and near complete resolution of her discomfort that was present the previous evening. She is nervous about going for a CAT scan and potential IR drainage versus surgery, but overall feels much better than she did prior. No fever chills or sweats overnight. She does not have any abdominal pain at rest. No chest pain chest pressure or shortness of breath. Did have various questions about the pathophysiology of diverticulitis and the separate management of abscess which is associated with this, all questions answered to satisfaction at bedside visit. No additional questions at time of visit Physical Exam Physical Exam: General: A&Ox3. NAD. Cooperative. Nontoxic. Anxious affect but overall appears improved from prior evening HEENT: Atraumatic, normocephalic. Vision and hearing grossly intact Pulm: CTAB A&P. -wheezes, -rales, -rhonchi. Symmetrical chest rise. No increased work of breathing. No respiratory distress. Cardiac: RRR, -mrg. Radial pulses intact and symmetrical. Abdominal: Nontender, nondistended, soft. BS present. Results & Data Results & Data Vital Signs (Past 12 Hours) Vital Signs Temp Pulse Pulse Resp BP Pulse Ox O2 Del Method 08/09/24 15:53 36.9 C 79 18 151/95 H 97 Room Air 08/09/24 15:39 88 08/09/24 15:09 37.2 C 80 08/09/24 14:33 37 C 79 16 143/93 H 96 Room Air 08/09/24 13:52 37.1 C 79 16 156/101 H 95 Room Air 08/09/24 11:27 36.9 C 87 17 139/93 94 Room Air 08/09/24 09:45 83 08/09/24 08:05 Room Air 08/09/24 08:00 36.8 C 83 18 141/94 H 96 Room Air PG Care Time/CCT Total # of Minutes Spent Total Time Spent with Patient: Total time spent is greater than 50% in coordination of care (as documented) at patient's floor/unit and/or counseling patient: Coding Level of Care Code 61792 SUB INP/OBS CARE 3/50MIN Diagnoses Diverticulitis of intestine with abscess K57.20 Diverticulitis bleeding: without bleeding Diverticulitis site: large intestine (1) Diverticulitis of intestine with abscess Diverticulitis bleeding: without bleeding Diverticulitis site: large intestine Qualified Code(s): K57.20 - Diverticulitis of large intestine with perforation and abscess without bleeding
[2024-08-09] MEDS: D5W AND LACTATED RINGERS 1,000 ML IV SCH (16:29)
[2024-08-10 07:27] LABS: Hematocrit (blood only) 37.9 % (37.0-47.0); Hemoglobin 12.8 g/dl (12.0-16.0); Mean Corpuscular Hemoglobin 29.4 pg (25.0-34.0); Mean Corpuscular Hgb Conc 33.8 g/dL (32.0-36.0); Mean Corpuscular Volume 86.9 fL (80.0-100.0); Platelet Count 268 K/uL (130-400); RDW Coefficient of Variation 12.6 % (11.5-14.5); RDW Standard Deviation 40.1 fL (36.4-46.3); Red Blood Count 4.36 M/uL (4.20-5.40); White Blood Count 9.81 K/ul (4.8-10.8)
[2024-08-10 07:39] LABS: BUN Creatinine Ratio 12.7 (10-20); Calcium 8.4 mg/dl (8.6-10.3); Creatinine Clr Calc Pharmacy 162.3 ml/min; Potassium 3.8 mmol/L (3.5-5.1)
[2024-08-10 08:27] LABS: ALC (manual) 1.77 K/uL (1.2-3.4); ANC (manual) 7.16 K/uL (1.4-6.5); Basophils % (manual) 1 %; Eosinophils # (manual) 0.29 K/uL (0-0.50); Eosinophils % (manual) 3 %; Lymphocytes # (manual) 1.57 K/uL (1.2-3.4); Lymphocytes % (manual) 16 %; Monocytes # (manual) 0.29 K/uL (0.11-0.59); Monocytes % (manual) 3 %; Myelocytes % (manual) 2 %; Neutrophils # (manual) 7.16 K/uL (1.40-6.50); Neutrophils % (manual) 73 %; Plasma Cells % (manual) 2 %; Polychromasia 1+
--- NOTE | 2024-08-10 08:47 | Surgery Progress Note ---
Date of Service August 10, 2024 Assessment & Plan (1) Diverticulitis of intestine with abscess: Plan: Patient here with diverticulitis with abscess formation of 7x7cm. Patient underwent IR drainage yesterday, IR drain in place with 150mL output noted. WBC improved to 9.8 today, continue IV antibiotics Abdomen soft and nondistended. Denies N/V If patient continues to do well this morning will advance to clear liquids. Please note, [facility] general surgery will be covering over the weekend. as above. feeling much better. I would slowly advance diet over weekend...perhaps convert to oral antibiotics tuesday...would recommend repeat ct scan Tuesday to eval abcess....if all goes well possible d/c tuesday Admission and Anticipated Discharge Date Admission Date: August 08, [address] guided drainage of 7x7cm abscess. Drain remains in place with 150mL output this morning. Patient doing well this morning, states she is feeling hungry. States her abdominal pain has resolved and is nontender on exam. Denies any nausea or vomiting. Is passing flatus however no BM yet. Afebrile and WBC 9.8 this morning Physical Exam Constitutional: WD/WN, vitals as above Gastrointestinal (Abdomen): Inspection/Auscultation: abdomen not distended Percussion/Palpation: abdomen soft; abdomen nontender and abdomen not firm IR drain in place with 150cc output. Results & Data Vital Signs (Past 12 Hours) Vital Signs Temp Pulse Pulse Resp BP Pulse Ox O2 Del Method 08/10/24 03:29 36.9 C 76 18 150/95 H 96 Room Air 08/09/24 23:13 67 08/09/24 22:55 36.9 C 75 18 162/96 H 97 Room Air PG Care Time/CCT Total # of Minutes Spent Total Time Spent with Patient: Total time spent is greater than 50% in coordination of care (as documented) at patient's floor/unit and/or counseling patient: Coding Level of Care Code 56467 SUB INP/OBS CARE Diagnoses Diverticulitis of intestine with abscess K57.20 Diverticulitis bleeding: without bleeding Diverticulitis site: large intestine (1) Diverticulitis of intestine with abscess Diverticulitis bleeding: without bleeding Diverticulitis site: large intestine Qualified Code(s): K57.20 - Diverticulitis of large intestine with perforation and abscess without bleeding
--- NOTE | 2024-08-10 11:05 | Hospitalist Progress Note ---
Date of Service August 10, 2024 Assessment & Plan (1) Diverticulitis of intestine with abscess: Plan: Diverticulitis with abscess CTA/P: Diverticulitis with abscess involving multiple loops of small bowel. Reactive mesenteric and retroperitoneal lymph adenopathy is noted. No pneumoperitoneum to suggest perforation Case was reviewed with both interventional radiology and general surgery. Recommended for IR drainage after CT with oral contrast confirmed no bowel leak and progressing well as noted Leukocytosis of 17.55 on admission, rapidly downtrending following antibiotics - s/p IR drainage of abscess with drain placed and significant reduction in ab scess size. Fluid sent for culture and speciation/sensitivities. Gram stain is with mixed GNB, GPC, GPB. Patient clinically doing well will advance to clears today and follow progression. If any nausea/vomiting/pain develops with clears hold diet at that time. Plan DVT prophylaxis: Heparin twice daily CODE STATUS: Full code Disposition: PCU Diet: Clears Admission and Anticipated Discharge Date Admission Date: August 08, 2024 Eugenio Calderon is seen at the bedside. She reports she continues to feel very well. She has no pain. No fevers or chills overnight she has not noticed any further drainage into her surgical drain, seems to have the same approximate 150 cc of purulent output that was present previously. She reports that she is very hungry and eager to advance her diet. No nausea/vomiting. No di arrhea/constipation. No chest pain chest pressure. Physical Exam Physical Exam: General: A&Ox3. NAD. Cooperative. HEENT: Atraumatic, normocephalic. Vision and hearing grossly intact Pulm: Symmetrical chest rise. No increased work of breathing. No respiratory distress. Cardiac: RRR, -mrg. Abdominal: Surgical drain in place with about 150 cc of purulent material similar to prior. Abdomen is soft, nontender and without rebound/guarding Results & Data Results & Data Vital Signs (Past 12 Hours) Vital Signs Temp Pulse Pulse Resp BP Pulse Ox O2 Del Method 08/10/24 08:56 37.0 C 74 18 137/93 95 Room Air 08/10/24 03:29 36.9 C 76 18 150/95 H 96 Room Air 08/09/24 23:13 67 PG Care Time/CCT Total # of Minutes Spent Total Time Spent with Patient: Total time spent is greater than 50% in coordination of care (as documented) at patient's floor/unit and/or counseling patient: Coding Level of Care Code 64700 SUB INP/OBS CARE MIN Diagnoses Diverticulitis of intestine with abscess K57.20 Diverticulitis bleeding: without bleeding Diverticulitis site: large intestine (1) Diverticulitis of intestine with abscess Diverticulitis bleeding: without bleeding Diverticulitis site: large intestine Qualified Code(s): K57.20 - Diverticulitis of large intestine with perforation and abscess without bleeding
[2024-08-11 06:02] LABS: Hematocrit (blood only) 39.9 % (37.0-47.0); Hemoglobin 13.3 g/dl (12.0-16.0); Mean Corpuscular Hemoglobin 29.4 pg (25.0-34.0); Mean Corpuscular Hgb Conc 33.3 g/dL (32.0-36.0); Mean Corpuscular Volume 88.1 fL (80.0-100.0); Mean Platelet Volume 9.8 fL (9.4-12.4); Platelet Count 282 K/uL (130-400); RDW Coefficient of Variation 12.6 % (11.5-14.5); RDW Standard Deviation 40.6 fL (36.4-46.3); Red Blood Count 4.53 M/uL (4.20-5.40)
[2024-08-11 06:21] LABS: BUN Creatinine Ratio 12.9 (10-20); Calcium 8.6 mg/dl (8.6-10.3); Creatinine Clr Calc Pharmacy 164.4 ml/min; Potassium 3.7 mmol/L (3.5-5.1)
[2024-08-11 06:36] LABS: Basophils # (auto) 0.08 K/uL (0.00-0.20); Basophils % (auto) 0.9 %; Eosinophils # (auto) 0.32 K/uL (0.00-0.50); Eosinophils % (auto) 3.4 %; Immature Granulocytes # (auto) 0.36 K/uL (0.01-0.20); Immature Granulocytes % (auto) 3.8 %; Lymphocytes # (auto) 1.68 K/uL (1.20-3.40); Lymphocytes % (auto) 17.9 %; Monocytes # (auto) 0.75 K/uL (0.11-0.59); Neutrophils # (auto) 6.21 K/uL (1.40-6.50); Polychromasia 1+
--- NOTE | 2024-08-11 10:11 | Hospitalist Progress Note ---
Date of Service August 11, 2024 Assessment & Plan (1) Diverticulitis of intestine with abscess: Plan: Diverticulitis with abscess CTA/P: Diverticulitis with abscess involving multiple loops of small bowel. Reactive mesenteric and retroperitoneal lymph adenopathy is noted. No pneumoperitoneum to suggest perforation Case was reviewed with both interventional radiology and general surgery. Recommended for IR drainage after CT with oral contrast confirmed no bowel leak and progressing well as noted Leukocytosis of 17.55 on admission, rapidly downtrending following antibiotics - s/p IR drainage of abscess with drain placed and significant reduction in ab scess size. Fluid sent for culture and speciation/sensitivities. Preliminary cultures with strep species Continuing to do very well after advancement to clears. Slowly advance diet over the next day or 2. Oral antibiotics tomorrow if continuing to do well, continue to follow cultures for speciation and sensitivities. If able to advance diet and remains clinically well possible discharge on 08/13 with outpatient follow-up to surgery for drain reevaluation/removal. Recommend that her antibiotics be continued to a minimum of 48-72 hours past drain removal Plan DVT prophylaxis: Lovenox CODE STATUS: Full code Disposition: PCU Diet: Clears Admission and Anticipated Discharge Date Admission Date: August 08, 2024 Eugenio Calderon is seen at the bedside this morning. She reports she feels very well and was very excited to have the best tasting broth she has ever had, noting a good appetite and with no pain following advancement to clears. Drain was emptied and since that time has had no further output. He has a no fever chills or sweats. No abdominal pain. No nausea/vomiting. After eating and she has had some liquid bowel movements without worsened pain. Reviewed plan including to slowly advance her diet over the next day or 2, and switch to targeted oral antibiotics tomorrow based on cultures if continuing to do well. If this continues to do well hopefully progression to discharge perhaps on Tuesday with outpatient follow-up to surgery for drain evaluation and? Removal in approximately 1 week. Physical Exam Physical Exam: General: A&Ox3. NAD. Cooperative. HEENT: Atraumatic, normocephalic. Vision and hearing grossly intact Pulm: Symmetrical chest rise. No increased work of breathing. No respiratory distress. Cardiac: RRR, -mrg. Abdominal: Surgical drain in place with 0cc of output since being last emptied. Abdomen is soft, nontender and without rebound/guarding Results & Data Results & Data Vital Signs (Past 12 Hours) Vital Signs Temp Pulse Pulse Resp BP Pulse Ox O2 Del Method 08/11/24 07:25 37.1 C 82 18 149/95 H 97 Room Air 08/11/24 06:41 74 08/11/24 03:00 36.8 C 70 16 153/98 H 97 Room Air 08/11/24 01:55 68 08/10/24 23:37 36.8 C 82 18 141/93 H 96 Room Air PG Care Time/CCT Total # of Minutes Spent Total Time Spent with Patient: Total time spent is greater than 50% in coordination of care (as documented) at patient's floor/unit and/or counseling patient: Coding Level of Care Code 09202 SUB INP/OBS CARE MIN Diagnoses Diverticulitis of intestine with abscess K57.20 Diverticulitis bleeding: without bleeding Diverticulitis site: large intestine (1) Diverticulitis of intestine with abscess Diverticulitis bleeding: without bleeding Diverticulitis site: large intestine Qualified Code(s): K57.20 - Diverticulitis of large intestine with perforation and abscess without bleeding
--- NOTE | 2024-08-11 12:10 | Surgery Progress Note ---
Date of Service August 11, 2024 Assessment & Plan (1) Diverticulitis of intestine with abscess: Plan: Patient here with diverticulitis with abscess formation of 7x7cm. Patient underwent IR drainage yesterday, IR drain in place with 150mL output noted. continue IV antibiotics Abdomen soft and nondistended. Denies N/V Advance to low fiber diet CT scan scheduled for Tuesday Admission and Anticipated Discharge Date Admission Date: August 08, 2024 Subjective feeling better today. Positive flatus and bowel movements. She is hungry. Denies fevers or chills. Physical Exam Physical Exam: awake/alert. no distress Gastrointestinal (Abdomen): Inspection/Auscultation: abdomen not distended Percussion/Palpation: + abdomen tender (some LLQ discomfort to palpation) and abdomen soft Results & Data Vital Signs (Past 12 Hours) Vital Signs Temp Pulse Pulse Resp BP Pulse Ox O2 Del Method 08/11/24 11:09 36.8 C 80 17 153/98 H 95 Room Air 08/11/24 07:25 37.1 C 82 18 149/95 H 97 Room Air 08/11/24 06:41 74 08/11/24 03:00 36.8 C 70 16 153/98 H 97 Room Air 08/11/24 01:55 68 (1) Diverticulitis of intestine with abscess Diverticulitis bleeding: without bleeding Diverticulitis site: large intestine Qualified Code(s): K57.20 - Diverticulitis of large intestine with perforation and abscess without bleeding
[2024-08-11] MEDS: ACETAMINOPHEN 500 MG TAB PO PRN (21:51)
[2024-08-12 07:03] LABS: Basophils # (auto) 0.06 K/uL (0.00-0.20); Basophils % (auto) 0.5 %; Eosinophils # (auto) 0.38 K/uL (0.00-0.50); Eosinophils % (auto) 3.2 %; Hematocrit (blood only) 40.9 % (37.0-47.0); Hemoglobin 13.2 g/dl (12.0-16.0); Immature Granulocytes # (auto) 0.21 K/uL (0.01-0.20); Immature Granulocytes % (auto) 1.8 %; Lymphocytes # (auto) 1.89 K/uL (1.20-3.40); Lymphocytes % (auto) 15.9 %; Mean Corpuscular Hemoglobin 28.4 pg (25.0-34.0); Mean Corpuscular Hgb Conc 32.3 g/dL (32.0-36.0); Mean Platelet Volume 10.1 fL (9.4-12.4); Monocytes # (auto) 0.84 K/uL (0.11-0.59); Monocytes % (auto) 7.1 %; Neutrophils # (auto) 8.47 K/uL (1.40-6.50); Neutrophils % (auto) 71.5 %; Platelet Count 323 K/uL (130-400); RDW Coefficient of Variation 12.5 % (11.5-14.5); Red Blood Count 4.65 M/uL (4.20-5.40); White Blood Count 11.85 K/ul (4.8-10.8)
[2024-08-12 07:13] LABS: BUN Creatinine Ratio 12.2 (10-20); Calcium 8.7 mg/dl (8.6-10.3); Creatinine Clr Calc Pharmacy 137.7 ml/min; Potassium 3.7 mmol/L (3.5-5.1)
[2024-08-12] MEDS: ENOXAPARIN INJ 40 MG/0.4 ML SYR SQ SCH (08:54)
[2024-08-12] MEDS: AMOXICILLIN/CLAVULANATE 875 MG TAB PO SCH (10:38)
--- NOTE | 2024-08-12 11:12 | Hospitalist Progress Note ---
Date of Service August 12, 2024 Assessment & Plan (1) Diverticulitis of intestine with abscess: Plan: Diverticulitis with abscess CTA/P: Diverticulitis with abscess involving multiple loops of small bowel. Reactive mesenteric and retroperitoneal lymph adenopathy is noted. No pneumoperitoneum to suggest perforation Case was reviewed with both interventional radiology and general surgery. Recommended for IR drainage after CT with oral contrast confirmed no bowel leak and progressing well as noted Leukocytosis of 17.55 on admission, normalized with slight uptrend on 08/12 - s/p IR drainage of abscess with drain placed and significant reduction in abscess size. Fluid sent for culture and speciation/sensitivities. Preliminary cultures with strep species Initially scheduled for transition to oral antibiotics 08/12, given rising white count we will hold off and continue Zosyn and follow progression over the next 24 hours. Clinically remains well with slight tenderness on deep palpation of the left lower quadrant otherwise no pain and tolerating low fiber diet. Surgery following. Appreciate recommendations Plan DVT prophylaxis: Lovenox CODE STATUS: Full code Disposition: PCU Diet: Low fiber Admission and Anticipated Discharge Date Admission Date: August 08, 2024 Subjective Seen at bedside this morning. Continues to feel well. No nausea/vomiting. No pain at rest, is passing gas and some liquid bowel movements. No fevers or chills overnight. No shortness of breath or difficulty breathing. Slight rise in leukocytosis overnight, she has not had any nausea/dry heaving and feels that she continues to do well Physical Exam Physical Exam: General: A&Ox3. NAD. Cooperative. HEENT: Atraumatic, normocephalic. Vision and hearing grossly intact Pulm: Symmetrical chest rise. No increased work of breathing. No respiratory distress. Cardiac: RRR, -mrg. Abdominal: Surgical drain in place. Abdomen is soft, trace left lower quadrant discomfort to deep palpation otherwise nontender and without rebound/guarding Results & Data Results & Data Vital Signs (Past 12 Hours) Vital Signs Temp Pulse Resp BP Pulse Ox O2 Del Method 08/12/24 07:30 36.8 C 87 16 155/104 H 96 Room Air PG Care Time/CCT Total # of Minutes Spent Total Time Spent with Patient: Total time spent is greater than 50% in coordination of care (as documented) at patient's floor/unit and/or counseling patient: Coding Level of Care Code 17548 SUB INP/OBS CARE 2/35MIN Diagnoses Diverticulitis of intestine with abscess K57.20 Diverticulitis bleeding: without bleeding Diverticulitis site: large intestine (1) Diverticulitis of intestine with abscess Diverticulitis bleeding: without bleeding Diverticulitis site: large inte diogenes Qualified Code(s): K57.20 - Diverticulitis of large intestine with perforation and abscess without bleeding
--- NOTE | 2024-08-12 11:18 | Surgery Progress Note ---
Date of Service August 12, 2024 Assessment & Plan (1) Diverticulitis of intestine with abscess: Plan: Patient here with diverticulitis with abscess formation of 7x7cm. Patient underwent IR drainage yesterday, IR drain in place with 150mL output noted. continue IV antibiotics - WBC slightly elevated today Abdomen soft and nondistended. Denies N/V Continue diet CT scan scheduled for Tuesday Admission and Anticipated Discharge Date Admission Date: August 08, 2024 Subjective feeling well. Tolerating diet. No nausea or vomiting. No fevers. Physical Exam Physical Exam: awake/alert. no distress Gastrointestinal (Abdomen): Inspection/Auscultation: abdomen not distended Percussion/Palpation: + abdomen tender (some LLQ discomfort to palpation) and abdomen soft Results & Data Vital Signs (Past 12 Hours) Vital Signs Temp Pulse Resp BP Pulse Ox O2 Del Method 08/12/24 07:30 36.8 C 87 16 155/104 H 96 Room Air Laboratory Results 08/12/24 Range/Units 06:31 WBC 11.85 H (4.8-10.8) K/ul RBC 4.65 (4.20-5.40) M/uL Hgb 13.2 (12.0-16.0) g/dl Hct 40.9 (37.0-47.0) % MCV 88.0 (80.0-100.0) fL MCH 28.4 (25.0-34.0) pg MCHC 32.3 (32.0-36.0) g/dL RDW Std Deviation 40.0 (36.4-46.3) fL RDW Coeff of Yolis 12.5 (11.5-14.5) % Plt Count 323 (130-400) K/uL MPV 10.1 (9.4-12.4) fL Immature Gran % (Auto) 1.8 % Neut % (Auto) 71.5 % Lymph % (Auto) 15.9 % [place] % (Auto) 7.1 % Eos % (Auto) 3.2 % Baso % (Auto) 0.5 % Neut # (Auto) 8.47 H (1.40-6.50) K/uL Lymph # (Auto) 1.89 (1.20-3.40) K/uL [place] # (Auto) 0.84 H (0.11-0.59) K/uL Eos # (Auto) 0.38 (0.00-0.50) K/uL Baso # (Auto) 0.06 (0.00-0.20) K/uL Immature Gran # (Auto) 0.21 H (0.01-0.20) K/uL Sodium 137 (136-145) mmol/L Potassium 3.7 (3.5-5.1) mmol/L Chloride 103 (98-107) mmol/L Carbon Dioxide 27 (21-32) mmol/L Anion Gap 7 (3-11) BUN 9 (6-23) mg/dl Creatinine 0.74 (0.6-1.2) mg/dl Est Cr Clr Drug Dosing 137.7 ml/min eGFR 103.53 BUN/Creatinine Ratio 12.2 (10-20) Glucose 97 (70-99(Fasting)) mg/dl Calcium 8.7 (8.6-10.3) mg/dl (1) Diverticulitis of intestine with abscess Diverticulitis bleeding: without bleeding Diverticulitis site: large intesti ne Qualified Code(s): K57.20 - Diverticulitis of large intestine with perforation and abscess without bleeding
[2024-08-12] MEDS: PIPERACILLIN/TAZOBACTAM 4.5 GM/100 ML BAG IV SCH (11:33)
[2024-08-13 06:44] LABS: Basophils # (auto) 0.06 K/uL (0.00-0.20); Basophils % (auto) 0.6 %; Eosinophils # (auto) 0.38 K/uL (0.00-0.50); Eosinophils % (auto) 3.6 %; Hematocrit (blood only) 37.8 % (37.0-47.0); Hemoglobin 12.6 g/dl (12.0-16.0); Immature Granulocytes # (auto) 0.14 K/uL (0.01-0.20); Immature Granulocytes % (auto) 1.3 %; Lymphocytes # (auto) 1.36 K/uL (1.20-3.40); Mean Corpuscular Hgb Conc 33.3 g/dL (32.0-36.0); Mean Corpuscular Volume 87.1 fL (80.0-100.0); Monocytes # (auto) 0.68 K/uL (0.11-0.59); Monocytes % (auto) 6.5 %; Neutrophils # (auto) 7.85 K/uL (1.40-6.50); Platelet Count 271 K/uL (130-400); RDW Coefficient of Variation 12.5 % (11.5-14.5); RDW Standard Deviation 39.9 fL (36.4-46.3); Red Blood Count 4.34 M/uL (4.20-5.40); White Blood Count 10.47 K/ul (4.8-10.8)
[2024-08-13 07:08] LABS: BUN Creatinine Ratio 12.3 (10-20); Calcium 8.5 mg/dl (8.6-10.3); Creatinine Clr Calc Pharmacy 156.8 ml/min; Potassium 3.6 mmol/L (3.5-5.1)
--- NOTE | 2024-08-13 07:47 | CT Scan Report ---
CT SCAN OF THE ABDOMEN AND PELVIS WITHOUT IV CONTRAST CLINICAL HISTORY: Abscess. COMPARISON STUDY: Abdominal CT dated 08/08/2024. TECHNIQUE: CT scan of the abdomen and pelvis is performed from the lung bases to the proximal femora. Images are reviewed in the axial, sagittal, and coronal planes. IV contrast was not administered for this examination as per the referring clinician. Note that the examination was performed in signific antly suboptimal fashion without IV contrast. Oral contrast was utilized. A dose lowering technique w as utilized adhering to the principles of ALARA. CT DOSE: 1535.89 mGy.cm FINDINGS: Lung bases: The heart is normal in size and without pericardial effusion. There are trace pleural eff usions with dependent atelectasis. There is a small hiatal hernia. Liver: The unenhanced liver is mildly enlarged measuring 18.9 cm in length. Attenuation is diminished indicating steatosis. Fatty sparing is seen adjacent to the gallbladder fossa. There is no intrahepa tic biliary ductal dilatation. Gallbladder: There are calcified gallstones with no CT evidence of acute cholecystitis. Spleen: The spleen is mildly enlarged measuring 14.4 cm in length. Pancreas: Unremarkable. Adrenal glands: Unremarkable. Kidneys: The unenhanced kidneys are normal in size and without hydronephrosis. There are no renal liborio culi identified. There is no evidence of contour deforming renal mass lesion. A retroaortic left arnoldo l vein is incidentally noted. Abdominal vasculature: The abdominal aorta is normal in course and caliber. Bowel: There is persistent wall thickening of small bowel loops in the central left lower quadrant ad jacent to the site of prior abscess/a drain. There is also persistent wall thickening of the sigmoid colon with diverticulosis. This likely represents diverticulitis, and there are tiny adjacent foci of intraperitoneal free air. There is no bowel obstruction. Enteric contrast reaches the left colon. No extraluminal contrast is identified. The appendix is well-visualized and normal. Peritoneum: A drain is present within the central mesentery within the left lower quadrant from a lef t anterior approach. The fluid collection seen on 08/08/2024 has almost completely resolved. There is persistent surrounding inflammation. Tiny foci of adjacent intraperitoneal free air are nonspecific a nd likely related to the presence of an indwelling catheter. There is a fat-containing umbilical lyn ia. Lymphadenopathy: Prominent subcentimeter mesenteric lymph nodes are likely reactive. Pelvic viscera: The the bladder wall appears mildly thickened. The uterus and adnexa are normal as vi sualized. Skeletal structures: Mild sclerotic change is noted in the sacroiliac joints. Moderate to severe disc space narrowing is seen at L5-S1 with a posterior disc osteophyte complex at this level. No lytic or blastic lesions are seen. IMPRESSION: 1. Significantly suboptimal examination without IV contrast 2. A peritoneal drain is in place as above, and the fluid collection seen on 08/08/2024 has almost com pletely resolved. 3. There is wall thickening of the sigmoid colon with diverticular disease, and this likely represent s the sequelae of perforated diverticulitis. 4. There is persistent inflammatory change at the site of the prior collection/around the drain as we ll as persistent thick-walled loops of small bowel. This is likely reactive. 5. Small nonspecific foci of intraperitoneal free air are seen around the catheter site. 6. There is no bowel obstruction. No extraluminal contrast is clearly identified. 7. Trace pleural effusions. 8. Hepatic steatosis. 9. Mild splenomegaly. 10. Cholelithiasis. 11. Additional findings as above. ACT 112: Negative or not required by law. Electronically signed by: Nikhil Stevenson M.D. 08/13/2024 7:45 AM
--- NOTE | 2024-08-13 08:30 | Surgery Progress Note ---
Date of Service August 13, 2024 Assessment & Plan (1) Diverticulitis of intestine with abscess: Plan: pt here w/ diverticulitis and abscess formation IR placed drain on 08/09, now with scant output Repeat CT today showed almost completely resolved fluid collection WBC 10 Will d/c IR drain today Recommend continued PO abx for course of 10 days at home Recommend outpt colonoscopy in 6-8 wks Low fiber diet over next 3-4 wks then may slowly reintroduce Admission and Anticipated Discharge Date Admission Date: August 08, 2024 Subjective pt feeling well. pain improved. tolerating diet, no n/v Physical Exam Physical Exam: awake/alert, no distress Gastrointestinal (Abdomen): Percussion/Palpation: abdomen soft IR bag with scant output in bag Results & Data Vital Signs (Past 12 Hours) Vital Signs Temp Pulse Resp BP Pulse Ox O2 Del Method 08/13/24 07:57 99.0 F 84 20 135/93 98 Room Air 08/12/24 22:04 99.1 F 99 H 18 154/106 H 98 Room Air PG Care Time/CCT Total # of Minutes Spent Total Time Spent with Patient: Total time spent is greater than 50% in coordination of care (as documented) at patient's floor/unit and/or counseling patient: Coding Level of Care Code 01724 SUB INP/OBS CARE 11/24MIN Diagnoses Diverticulitis of intestine with abscess K57.20 Diverticulitis bleeding: without bleeding Diverticulitis site: large intestine (1) Diverticulitis of intestine with abscess Diverticulitis bleeding: without bleeding Diverticulitis site: large intestine Qualified Code(s): K57.20 - Diverticulitis of large intestine with perforation and abscess without bleeding
--- NOTE | 2024-08-13 10:16 | Discharge Summary ---
Discharge Summary Date of Service August 13, 2024 Principal Dx & Hospital Course #1 = Principal Diagnosis (1) Diverticulitis of intestine with abscess: Treated with intravenous Zosyn while hospitalized. Appreciate general surgery consultation recommendations. She will continue Augmentin twice daily for 10 more days at discharge and follow a low fiber diet. Outpatient colonoscopy recommended in 6 to 8 weeks. Plan Home today, August 13. Continue Augmentin for 10 more days. Follow low fiber diet. Outpatient colonoscopy recommended in 6 to 8 weeks by surgery. She will follow-up in the medical residents clinic Admission HPI Per Admitting Provider Yumiko is a 44-year-old female with no past medical history who takes vitamins and ibuprofen as needed as her only medications who presented to the ER with abdominal pain and he was found to have diverticulitis with abscess involving multiple loops of small bowel. Reactive mesenteric and retroperitoneal lymph adenopathy is noted. No pneumoperitoneum to suggest perforation Abdominal pain and dysuria x7 days Fever of ~100.8. Thought it was a UTI Got a telehealth appt --> placed on macrobid which FElt better up until Tuesday, went to lunch and had a salad and then had 'crazy wave of abdominal pain second in my life only to labor pains' 07/10 pain. Got son from day care, layed on the cough and vomited --> felt better but pain lingered at 03/09 still felt poorly. Attributed nausea to the antibiotic. Currently feels pain is improved at rest after pain medicine, but does continue to be tender in her left lower quadrant. Nausea has improved with Zofran Does not have chills currently, but does endorse that she has had fevers intermittently in the last week. Dysuria has resolved Denies chest pain, chest pressure, shortness of breath, difficulty breathing, leg swelling No other medical problems, no known medication allergies Medical History: Reviewed Medications: Reviewed Surgical History: Reviewed Family history: Reviewed Allergies: Reviewed. NKDA Social History: ETOH 1-2x per week. No tobacco. Code Status: Full Code PhD studying science education Discharge Plan Discharge Items Patient Disposition: Home - Self-Care Reason For Visit: DIVERTICULITIS WITH ABSCESS Discharge Diagnosis: Acute diverticulitis with microperforation and localized abscess Activity: Per Instructions section Non-emergency contact: Primary Care Provider Call non-emergency contact if: your symptoms worsen Follow-up/Referrals: [facility] [Primary Care Provider] - Diet: Regular and Low Fiber Addtl Attending Provider Instructions: Take amoxicillin/clavulanate twice daily for 10 more days. Follow a low fiber diet. Consider outpatient colonoscopy in 6 to 8 weeks. Follow-up in the medical residents clinic as directed Pending Studies at Discharge: No Stand-Alone Forms: [facility] Good Eggs, Smoking Cessation Medications and DC Order Prescriptions: New amoxicillin-pot clavulanate 875-125 mg tablet 1 tab PO BID Qty: 20 0RF Continued Fish Oil 1 cap PO DAILY Rx Instructions: OTC, as directed Vitamin D3 1 tab PO DAILY Rx Instructions: OTC, as directed magnesium glycinate 1 tab PO DAILY Rx Instructions: otc, as directed Ibuprofen Tab (MOTRIN) 600 MG tablet 600 mg PO Q4H PRN (Reason: Pain) Discharge Orders: Discharge Order (Routine); Ordered 08/13/24 Ordered By: Jossue Smith/Other Patient Handouts: Low-Fiber Diet Admission Data Admit Date/Time: 08/08/24 14:12 Attending Provider: Jossue Norris Admit Provider: Marko Marie Primary Care Provider: [facility] Other Providers: Marko Marie; Nader Ventura Hospital Stay Data Consultations 08/08/24 14:10 ED Decision to Admit Stat 08/08/24 14:12 Consult General Surgery Stat Diagnostic Imagining Performed 08/08/24 09:33 CT abd pelvis IV con only Stat 08/09/24 12:[address] periton/retro w/gdnce Routine 08/13/24 06:00 CT abd pelvis oral con only Routine Pending Results Patient Have Any Pending Studies at Discharge: No Discharge Instructions Given to Patient (Per Discharging Provider) Take amoxicillin/clavulanate twice daily for 10 more days. Follow a low fiber diet. Consider outpatient colonoscopy in 6 to 8 weeks. Follow-up in the medical residents clinic as directed Total Time Total Time Spent Total Time Spent (In Minutes): 45-minute Coding Level of Care Code 72712 INP/OBS DISCH >30 MIN Diagnoses Diverticulitis of intestine with abscess K57.20 Diverticulitis bleeding: without bleeding Diverticulitis site: large intestine
--- NOTE | 2024-08-20 13:15 | Coding Query ---
To promote full compliance with coding requirements relating to patient care, provider participation is requested in all cases of hospital coder uncertainty. Please assist us with the question(s) below: Coding Question(s): The diagnosis(es) below was documented in the H&P then subsequently fell off all further documentation. Please indicate if it is still a possible diagnosis or ruled out. Physician's Response(s): SEPSIS ( X ) Diagnosed and POA ( ) Diagnosed and not POA ( ) Ruled out ( ) Other (please specify) MTDD
== END 2024-08-13 12:37 | disposition home or self-care (01) | DRG 872 ==
LOC: ED 08:37 → 4W 14:12 → SUATTDRO 14:12 → 4W 16:33 → 3E 08-11 13:44